=== PATIENT | male | born 1970 | race Caucasian/White ===

== ENCOUNTER 2017-06-14 15:03 | Emergency (ER) | payer MEDICAID, OTHER ==
[~2017-06-14] VITALS: Ht 188 cm; Wt 161.9 kg
[2017-06-14 16:05] LABS: Basophils # (auto) 0.1 uL; Basophils % (auto) 0.9 % (0.0-2.0); Eosinophils # (auto) 0.4 uL; Eosinophils % (auto) 5.1 % (0.0-7.0); Hematocrit 43.1 % (41.0-53.0); Hemoglobin 14.5 g/dL (13.5-17.5); Lymphocytes # (auto) 1.2 uL; Lymphocytes % (auto) 13.5 % (10.0-50.0); Mean Corpuscular Hemoglobin 30.9 pg (28.0-32.0); Mean Corpuscular Hgb Conc. 33.5 g/dL (32.0-36.0); Mean Corpuscular Volume 92.1 fL (80.0-100.0); Mean Platelet Volume 7.3 fL (6.9-10.8); Monocytes # (auto) 0.8 uL; Monocytes % (auto) 9.6 % (0.0-12.0); Neutrophils # (auto) 6.1 uL; Neutrophils % (auto) 70.9 % (37.0-80.0); Nucleated Red Blood Cells % 0.1 %; Platelet Count (auto) 298 10^3/uL (140-450); Red Cell Distribution Width 14.2 % (11.8-14.3); White Blood Cell 8.6 10^3/uL (4.4-10.8)
[2017-06-14 16:10] LABS: Albumin 3.6 g/dL (3.4-5.0); Alkaline Phosphatase 84 U/L (45-117); Anion Gap 6 (5-15); Aspartate Aminotransferase 13 U/L (15-37); BUN/Creatinine Ratio 17.6; Bilirubin, Total 0.4 mg/dL (0.2-1.0); Blood Urea Nitrogen 15 mg/dL (7-18); Carbon Dioxide 28 mmol/L (21-32); Chloride 103 mmol/L (98-107); GFR African American 124 mL/min; GFR Non-African American 102 mL/min; Glucose 86 mg/dL (74-106); Potassium 4.1 mmol/L (3.5-5.1); Sodium 137 mmol/L (136-145); Total Protein 7.6 g/dL (6.4-8.2)
[2017-06-14 16:13] LABS: B-Type Natriuretic Peptide 14.21 pg/mL (0-100)
[2017-06-14 16:17] LABS: Temperature: 22.7 C (20.0-25.0)
[2017-06-14 22:16] LABS: Urine RBC None Seen /hpf (0 - 3)
[2017-06-14 22:33] LABS: Urine Bilirubin Negative (Negative); Urine Blood Negative /uL (Negative); Urine Color Yellow (Yellow); Urine Glucose Normal (Normal); Urine Ketone Negative (Negative); Urine Mucus FEW (None Seen); Urine Nitrite Negative (Negative); Urine Urobilinogen Normal (Negative); Urine pH 5.5 (5.0-8.0)
[2017-06-14 23:30] VITALS: BP 147/74
== END 2017-06-14 23:44 | disposition home or self-care (01) ==
LOC: ER 15:03
DX: M15.9 Polyosteoarthritis, unspecified (principal); I10 Essential (primary) hypertension; M19.90 Unspecified osteoarthritis, unspecified site; M79.89 Other specified soft tissue disorders; M79.605 Pain in left leg
CPT/HCPCS: 36415; 72131; 73590; 80053; 80185; 81001; 83880; 84484; 85025; 85379; 93971